=== PATIENT | female | born 1980 | race Caucasian/White ===

== ENCOUNTER 2016-06-30 15:03 | Emergency (ER) | payer OTHER | END 2016-06-30 16:05 | disposition home or self-care (01) | LOC: ER1 15:03 | DX: L03.115 Cellulitis of right lower limb (principal); I10 Essential (primary) hypertension; G43.909 Migraine, unspecified, not intractable, without status migrainosus; F32.9 Major depressive disorder, single episode, unspecified; Z90.49 Acquired absence of other specified parts of digestive tract; Z91.041 Radiographic dye allergy status; Z79.899 Other long term (current) drug therapy | CPT/HCPCS: 10060; 87070; 87077; 87186; 87205; 99283 ==

== ENCOUNTER 2020-10-02 17:23 | Emergency (ER) | payer OTHER ==
[2020-10-02 18:18] LABS: HEMOGLOBIN 12.7 gm/dl (12.3-15.3); RED BLOOD COUNT 4.11 M/UL (4.00-5.10); WHITE BLOOD COUNT 7.1 K/UL (4.5-11.0)
[2020-10-02 18:36] LABS: BUN/CREATININE RATIO 10 (0-10)
[2020-10-02] MEDS ORDERED: PYRIDIUM200 MG PO (20:28)
[2020-10-02] MEDS ORDERED: ONDANSETRON ODT4 MG SL (20:28)
[2020-10-02] MEDS ORDERED: CEFUROXIME500 MG PO (20:28)
[2020-10-02] MEDS ORDERED: IBUPROFEN600 MG PO (20:28)
== END 2020-10-02 21:16 | disposition home or self-care (01) ==
LOC: ER1 17:23
PROVIDERS: Physician Assistant
DX: N12 Tubulo-interstitial nephritis, not specified as acute or chronic (principal); R00.0 Tachycardia, unspecified; E87.6 Hypokalemia; I10 Essential (primary) hypertension; F17.200 Nicotine dependence, unspecified, uncomplicated; Z87.442 Personal history of urinary calculi; Z90.49 Acquired absence of other specified parts of digestive tract; Z91.041 Radiographic dye allergy status
CPT/HCPCS: 80053; 81001; 83605; 84703; 85025; 87040; 87077; 87086; 87186; 96374; 96375; 99284; J0696; J1885; J2270; J2405; J7030